=== PATIENT | female | born 1965 | race African-American/Black ===

== ENCOUNTER 2016-10-28 16:30 | Emergency (ER) | payer MEDICARE, OTHER ==
[~2016-10-28] VITALS: Ht 165.1 cm; Wt 95.3 kg
[~2016-10-28 16:30] MED LIST: ATIVAN1 MG ORAL; BENADRYL25 MG ORAL; COGENTIN1 MG/ML ORAL; IBUPROFEN600 MG ORAL; IRON325 M2 PO; MACROBID100 MG ORAL; PROMETHAZINE-D118 ML ORAL; UNOBMED
[2016-10-28 16:38] VITALS: BP 100/70
[2016-10-28 17:34] LABS: APPEARANCE,URINE CLEAR; KETONES,URINE NEGATIVE (NEGATIVE); LEUKOCYTE ESTERASE ,URINE 1+ (NEGATIVE); NITRITE,URINE NEGATIVE (NEGATIVE); PH,URINE 6 (4.5-8.0); PROTEIN,URINE NEGATIVE (NEGATIVE); UROBILINOGEN,URINE NORMAL MG/DL (0.0-1.0)
[2016-10-28 17:40] LABS: BACTERIA,URINE FEW /HPF; SQUAMOUS EPITHELIAL CELL,UR FEW /LPF (NONE/OCC)
--- NOTE | 2016-10-28 17:45 | Emergency Room Report ---
History of Present Illness General Chief Complaint: Constipation Source: EMS Present Illness HPI 51-year-old female presents to emergency Department complaining of not having a solid bowel movement for 3-5 days. Patient reports intermittent diarrhea. Patient denies constipation however she states she took a stool softener this a.m. Patient denies blood in the stool or black tarry stools. Patient denies abdominal pain, nausea or vomiting. Patient reports that she is , that her water broke, and she is worried she may have something up her butt. Denies CP, Palpitations, LOC, AMS, dizziness, Changes in Vision, Sensation, paresthesias, or a sudden severe headache. Allergies: Coded Allergies: AMOXICILLIN (Verified Allergy, Unknown, 02/13/14) PENICILLINS (Verified Allergy, Unknown, 04/18/15) Patient History Past Medical History: see triage record, psych hx Past Surgical History: none Pertinent Family History: none Now: No Reviewed Nursing Documentation: PMH: Agreed, PSxH: Agreed Nursing Documentation-PMH Past Medical History: No History, Except For Hx Pacemaker: No Hx Asthma: No Hx COPD: Yes Hx Diabetes: No Hx Cancer: No Hx Gastrointestinal Problems: No Hx Dialysis: No History Of Psychiatric Problem: Yes - SCHIZOPHRENIA, EPS Hx Neurological Problems: No Hx Cerebrovascular Accident: No Hx Seizures: No Review of Systems All Other Systems: negative except mentioned in HPI Physical Exam Vital Signs Date Time Temp Pulse Resp B/P Pulse Ox O2 Delivery O2 Flow Rate FiO2 10/28/16 16:24 98.2 82 15 100/70 100 Room Air Sp02 EP Interpretation: reviewed, normal General Appearance: no apparent distress, alert, GCS 15, non-toxic Head: normocephalic, atraumatic Eyes: bilateral eye PERRL, bilateral eye normal inspection ENT: hearing grossly normal, normal pharynx, no angioedema, normal voice Neck: full range of motion, supple/symm/no masses Respiratory: lungs clear, normal breath sounds, speaking full sentences Cardiovascular #1: regular rate, rhythm, no edema, normal capillary refill Gastrointestinal: normal bowel sounds, non tender, soft, no guarding, no rebound, other Rectal: deferred - Pt Declines, states she wants an US. Genitourinary: normal inspection, no CVA tenderness Musculoskeletal: back normal, gait/station normal, normal range of motion, non- tender Neurologic: alert, oriented x3, responsive, motor strength/tone normal, sensory intact, speech normal Psychiatric: mood/affect normal, no suicidal/homicidal ideation, other - pt has hx of psychosis Skin: normal color, no rash, warm/dry, well hydrated Lymphatic: no adenopathy Medical Decision Making PA Attestation Dr. webb is my supervising Physician whom patient management has been discussed with. Diagnostic Impression: Primary Impression: Encounter for medical screening examination ER Course 51-year-old female presents to emergency Department complaining of not having a solid bowel movement for 3-5 days. Patient reports intermittent diarrhea. Patient denies constipation however she states she took a stool softener this a.m. Patient denies blood in the stool or black tarry stools. Patient denies abdominal pain, nausea or vomiting. Patient reports that she is , that her water broke, and she is worried she may have something up her butt. Ddx considered but are not limited to constipation , appendicitis, SBO, GE, Vital signs: are WNL, pt. is afebrile H&PE are most consistent with normal limited medical screening exam. bowl sounds are normo active, PE is benign no indication of TTP. pt. has psych hx. ORDERS: - CBC: Pt. declined -BMP:Pt. declined -Lipase: Pt. declined UA: unremarkable except for few rbc's. ED INTERVENTIONS: -.Pt. declined laboratory work, IV access, and states she feels fine. d/w pt. that she will be sent back to nursing facility, to follow up with PCP. pt. is A & O x 3 , NAD with stable VS. DISCHARGE: At this time pt. is stable for d/c to home. Will provide printed patient care instructions, and any necessary prescriptions. Care plan and follow up instructions have been discussed with the patient prior to discharge. Labs Test 10/28/16 17:10 Urine Color Pale yellow Urine Appearance Clear Urine pH 6 (4.5-8.0) Urine Specific Emily 1.010 (1.005-1.035) Urine Protein Negative (NEGATIVE) Urine Glucose (UA) Negative (NEGATIVE) Urine Ketones Negative (NEGATIVE) Urine Occult Blood 4+ (NEGATIVE) Urine Nitrite Negative (NEGATIVE) Urine Bilirubin Negative (NEGATIVE) Urine Urobilinogen Normal MG/DL (0.0-1.0) Urine Leukocyte Esterase 1+ (NEGATIVE) Urine RBC 5-10 /HPF (0 - 2) Urine WBC 2-4 /HPF (0 - 2) Urine Squamous Epithelial Cells Few /LPF (NONE/OCC) Urine Bacteria Few /HPF (NONE) Last Vital Signs Date Time Temp Pulse Resp B/P Pulse Ox O2 Delivery O2 Flow Rate FiO2 10/28/16 16:38 98.2 87 15 100/70 100 Room Air Disposition: HOME, SELF-CARE Condition: Stable Referrals: Sandra Trimble MD (PCP) Patient Instructions: Medical Screening Exam Additional Instructions: Take any previously prescribed medications as directed. Follow up with PCP in 3-5 days Return sooner to ED if new symptoms occur, or current symptoms become worse. - Please note that this Emergency Department Report was dictated using [employer] technology software, occasionally this can lead to erroneous entry secondary to interpretation by the dictation equipment. Sunshine Howe Oct 28, 2016 17:45
[2016-10-28 20:09] VITALS: BP_SYST 100; BP_SYST 105; BP_DIAS 70; BP_DIAS 76
== END 2016-10-28 20:09 | disposition home or self-care (01) ==
LOC: EDBD 16:30 → EMR 16:50
DX: K59.00 Constipation, unspecified (principal); R19.7 Diarrhea, unspecified; Z88.0 Allergy status to penicillin; J44.9 Chronic obstructive pulmonary disease, unspecified; F20.9 Schizophrenia, unspecified
CPT/HCPCS: 81003; 99283